=== PATIENT | male | born 1980 | race Caucasian/White ===

== ENCOUNTER 2020-07-02 10:42 | Outpatient (CLI) | payer MEDICARE, SELFPAY ==
--- NOTE | 2020-07-02 10:56 | CT_ITS ---
WS: [id number] CT of the lumbar spine, additional two-dimensional coronal and sagittal imaging was obtained. 07/02/20 Clinical Data: ACUTE LOW BACK PAIN DUE TO TRAUMA, NEUROFORAMINAL STENOSIS Comparison: CT lumbar spine, 11/22/2016. DLP: 2025.[address] scans at [facility] use at least one of these dose optimization techniques: automat ed exposure control; mA and/or kV adjustment per patient size (includes targeted exams where dose is matched to clinical indication); or iterative reconstruction. Findings: No compression fractures are seen. The disc heights are normal. The transverse processes an d spinous processes are normal. The SI joints are nonremarkable. Minimal anterior osteoarthritic spur ring of all the lumbar vertebral bodies is seen. T12-L1: No canal stenosis, disc bulge or foraminal narrowing is seen. L1-L2: No canal stenosis, disc bulge or foraminal narrowing is seen. L2-L3: No canal stenosis, disc bulge or foraminal narrowing is seen. L3-L4: No canal stenosis, disc bulge or foraminal narrowing is seen. L4-L5: There is a small broad-based central disc bulge causing mild spinal stenosis unchanged. L5-S1: There is a broad-based disc bulge causing canal stenosis with foraminal narrowing on the left unchanged. CT/CT lumbar spine wo con* [id number] Impression: 1. Broad-based disc bulging at L4-L5 and L5-S1 unchanged. 2. Minimal osteoarthritic spurring of all the lumbar vertebral bodies unchanged .
== END 2020-07-02 10:43 | disposition home or self-care (01) ==
LOC: RADWPI 10:50
PROVIDERS: PCP Family Medicine; Visit Provider Family Medicine
DX: M51.26 Other intervertebral disc displacement, lumbar region (principal)
CPT/HCPCS: 72131

== ENCOUNTER 2020-07-21 13:07 | Outpatient (CLI) | payer MEDICARE, SELFPAY ==
--- NOTE | 2020-07-21 13:00 | MR_ITS ---
WS: [id number] MRI LUMBAR SPINE NONCONTRAST HISTORY: M54.9 - Dorsalgia, unspecified COMPARISON: CT 07/02/2020 TECHNIQUE: Sagittal and axial multisequence imaging is submitted. 2 mm retrolisthesis of L2. No fractures or marrow edema. Mild disc space narrowing and desiccation at L4-5 and L5-S1. Benign hemangioma at T11. Conus terminates normally at mid L1. L1-L2: Mild annular disc bulging with a very shallow LEFT paracentral disc protrusion. No significant stenosis. L2-L3: Mild annular disc bulging with facet and ligamentum flavum arthritis. Very minimal encroachmen t upon the subarticular recesses. L3-L4: Mild annular disc bulging and osteophytic ridging with facet and ligamentum flavum hypertrophy . Mild bilateral foraminal narrowing. L4-L5: Moderate annular disc bulge with a central disc protrusion and annular fissure. Mild ligamentu m flavum hypertrophy and facet arthritis. Mild bilateral foraminal narrowing. L5-S1: Mild annular disc bulging and osteophytic ridging. Large central disc protrusion extending to the RIGHT and LEFT of midline. There is significant disc protrusion into the LEFT lateral recess and subarticular recess. Disc is abutting the LEFT L5 and S1 nerve root. Additional encroachment upon the L5 and S1 nerve roots but to a lesser extent. Severe LEFT foraminal and moderate RIGHT foraminal jay nosis. MR/MR lumbar spine wo con* [id number] IMPRESSION: 1. Large central disc protrusion at L5-S1 with extension to the RIGHT and LEFT . 2. Significant disc protrusion extending into the LEFT lateral recess and suba rticular foramen resulting in encroachment and deformity of the LEFT L5 and S1 nerve roots. 3. Severe LEFT foraminal and moderate RIGHT foraminal stenosis at L5-S1 due to combination of disc disease and osteophytes. 4. Mild bilateral foraminal narrowing at L4-5 and L5-S1.
== END 2020-07-21 13:08 | disposition home or self-care (01) ==
PROVIDERS: PCP Family Medicine; Visit Provider Orthopaedic Surgery
DX: M51.27 Other intervertebral disc displacement, lumbosacral region (principal); M48.07 Spinal stenosis, lumbosacral region
CPT/HCPCS: 72148

== ENCOUNTER → 2020-08-13 16:27 | Outpatient (BNVA) | payer MEDICARE, SELFPAY | PROVIDERS: PCP Family Medicine; Visit Provider Orthopaedic Surgery | DX: Z11.59 Encounter for screening for other viral diseases (principal) | CPT/HCPCS: 87635 ==

== ENCOUNTER 2020-08-17 11:03 | Day surgery (SDC) | payer MEDICARE, SELFPAY ==
[2020-08-14 13:19] VITALS: BMI 33.0
[2020-08-17] VITALS (13 sets, daily range): BP systolic 118–145; BP diastolic 75–90; PULSE 55–89; RESP 9–20; TEMP 36.1–36.3; O2SAT 96–100
--- NOTE | 2020-08-17 | XR_ITS ---
WS: [id number] C-ARM RADIOGRAPHS LUMBAR SPINE; 3 IMAGES HISTORY: LEFT L5/S1 herniated disc COMPARISON: None available. Intraoperative imaging during decompression at the L5-S1 level. XR/XR lumbar spine 2-3V* [id number] IMPRESSION: Intraoperative imaging during lumbar spine decompression.
--- NOTE | 2020-08-17 | SCC_ITS ---
Procedure Done: Left L5/S1 Diskectomy Partial facetectomy 12.3 seconds of fluoroscopic guidance, for a cumulative dose of 4.22 mGy, was provided to Dr. Moffett by the radiology department. C-arm images of the lumbar spine were saved for the patient's permanent record. [place]
[2020-08-17] MEDS: sodium chloride 0.9% 1,000 ML 30 ML IV (11:39)
--- NOTE | 2020-08-17 11:44 | P.ANESASSM_ITS ---
Pre-Anesthetic Assessment Pre-Anesthetic Assessment: Height/Weight: Height 1.78 m Weight 104.326 kg Temp Pulse Resp BP Pulse Ox 97.4 F L 87 18 141/85 96 08/17/20 11:21 08/17/20 11:21 08/17/20 11:21 08/17/20 11:21 08/17/20 11:21 Preop Diagnosis: Left L5/S1 disk herniation Proposed Procedure: Operation Date: 08/17/20 12:20 Proposed Procedures p L5/S1 Discectomy 00438 M51.26(Not Applicable) - Julio Moffett DO Familial anesthetic complications: None Was Beta Elle taken within 24 hours: N/A Last intake: Intake NPO > 8 hrs Last Liquid Date 08/16/20 Last Solid Date 08/16/20 Social: Social History: No alcohol and No tobacco Exam: Pre-Anes Outpt Exam: alert, oriented x 3, clear to auscultation bilaterally and regular rate & rhythm Airway: Cervical ROM: WNL Dentition: Chipped (front tooth) GI: GI: GERD Anesthetic Plan: ASA status: 1 Anesthesia: General Risk of > 500 ml bloo d loss (7ml/kg in children): No Meds/Allergies Current Medications: Current Medications Generic Name Dose Route Start Last Admin Trade Name Freq PRN Reason Stop Dose Admin Sodium Chloride 1,000 mls @ 30 ml s/hr 08/17/20 11:30 08/17/20 11:39 Sodium Chloride 0.9% IV 08/18/20 11:29 30 mls/hr .Q24H JOURDAN Administration PFSH Anesthesia PFSH: Social History Smoking and tobacco status: current some day smoker cigarettes Alcohol intake: current Alcohol intake frequency: holidays/special occasions only Data Anesthesia Cardiac Studies: No Data to Display
--- NOTE | 2020-08-17 12:01 | W.PM.OPSUD ---
Surgery/Procedure H&P Update DATE OF PROCEDURE: August 17, 2020 DATE H&P PERFORMED: 08/13/20 H&P UPDATE INFORMATION: I have reviewed H&P completed within last 30 days and I have examined patient prior to procedure PREOP DIAGNOSIS: Left L5/S1 disk herniation PLANNED PROCEDURE: Operation Date: 08/17/20 12:20 Proposed Procedures p L5/S1 Discectomy 28617 M51.26(Not Applicable) - Julio Moffett DO
[2020-08-17] MEDS: fentaNYL 50 mcg/mL INJ 2mL IVP ×3 (12:31→14:39)
--- NOTE | 2020-08-17 14:15 | PM.OP ---
Operative Report Date of procedure: August 17, 2020 Pre-op Diagnosis: Left L5/S1 disk herniation Post-op diagnosis: same Procedure Done: Left L5/S1 Diskectomy Partial facetectomy Surgeon: Julio Moffett Anesthesia: General Estimated blood loss (mL): 5 Condition: stable Disposition: PACU Procedure: 1. Left L5/S1 Diskectomy Partial facetectomy Patient was brought to the operative suite after undergoing anesthesia was placed in prone position all areas impingement well-padded. Patient was prepped and draped in normal sterile fashion. Skin was was made over the L5-S1 level. Is confirmed under C-arm guidance. Dilators passed tubular retractor was docked onto the L5 lamina. Bovie was used to clear the soft tissues off the lamina and facet joint of L5-S1. High-speed bur was used perform laminotomy as well as take down the medial aspect of facet joint. Kerrison rongeur was then used to take down the remaining lamina to the point where the ligamentum flavum inserted. Ligament flavum was taken down from L5-S1. The ligament flavum was taken out medially to the point of the facet. The medial aspect of facet joint was taken down S1 nerve root was identified and retracted medially. Disc was identified nerve hook was used to make a rent into the tissue over the herniated disc. And a pituitary was then used to remove the disc. Large amounts of disc material removed. Once all the disc tear was removed the disc base was irrigated. Wounds were irrigated. And wound was closed with Vicryl and Monocryl suture after the tube was removed. Sterile dressings were applied patient transferred to the PACU in stable condition.
--- NOTE | 2020-08-17 14:50 | SUR.PHASEI ---
1440 PT HAS SENSATION/MOVEMENT IN LOWER EXTREMITIES
[2020-08-17] MEDS: HYDROcodone-acetaminophen 5-325 mg Tablet 1 TAB PO (15:30)
--- NOTE | 2020-08-17 15:44 | ANE.PACU2 ---
Inpatient post-anesthesia follow up: Airway intact: Yes Vital signs: Temperature 97.4 F Pulse Rate 59 Respiratory Rate 18 Blood Pressure 120/84 Pulse Oximetry 98 Oxygen Delivery Me thod Room Air Oxygen Flow Rate 8 Fraction of Inspir ed Oxygen Hydration adequate: Yes Nausea and vomiting: No Pain level: 3 Mental status: Baseline
== END 2020-08-17 15:55 | disposition home or self-care (01) ==
PROVIDERS: PCP Family Medicine; Visit Provider Orthopaedic Surgery
PROC: (CPT 63030; principal; 2020-08-17 12:20)
DX: M51.26 Other intervertebral disc displacement, lumbar region (principal); F17.210 Nicotine dependence, cigarettes, uncomplicated
CPT/HCPCS: 63030; 12345; 72100; 76000; 96365; 96374; J0131; J0690; J1100; J2405; J2704; J3010; J3490; J7030

== ENCOUNTER 2020-08-19 10:51 | Inpatient (IN) | payer MEDICARE, MEDICAID, SELFPAY ==
[2020-08-19] VITALS (16 sets, daily range): BP systolic 106–169; BP diastolic 74–111; PULSE 65–103; RESP 11–30; TEMP 36.3–37.1; O2SAT 91–100
--- NOTE | 2020-08-19 | SCC_ITS ---
Procedure Done: 1. Re-explore L5/S1 diskectomy 7.7 seconds of fluoroscopic guidance, for a cumulative dose of 2.43 mGy, was provided to Dr. Moffett by the radiology department. C-arm images of the lumbar spine were saved for the patient's permanent record. [facility]
--- NOTE | 2020-08-19 | XR_ITS ---
WS: [id number] C-arm fluoroscopy of the lower lumbar spine, 08/19/2020 Clinical Data: Re-explore L5/S1 diskectomy Comparison: None. Findings: Dr. Moffett inspected the L5-S1 disc level. XR/XR lumbar spine 1V port [id number] Impression: Inspection of the L5-S1 disc level.
--- NOTE | 2020-08-19 12:01 | ED_ITS ---
HPI - Back Pain/Injury General: Chief Complaint: Back Pain/Injury Stated Complaint: BACK SURG 08/17, PAIN, LOSS CONTROL OF BOWELS Time Seen by Provider: 08/19/20 11:49 History of Present Illness: HPI Narrative: The patient is a 39-year-old male with past medical history of a herniated disc L5-S1. He had a discectomy [address] Moffett. He says it was an outpatient surgery and he went home and felt reasonably well that day. Yesterday evening he had a misstep and felt severe pain in his low back and burning pain in his left gluteal region. This morning he woke up and he is having frequent low-volume urinations and he was in bed and had an episode of bowel incontinence when he woke up this morning. MD elicited complaint: back pain Pertinent past history: back surgery Severity: severe Quality: sharp Location: lumbar spine Radiation: buttocks (left) Relieving factors: none Associated symptoms: Reports change in bowel habits, fecal incontinence and urinary frequency; Deny difficulty walking, fatigue or urinary urgency Review of Systems General: Reports: 10 or more systems reviewed and unremarkable except in HPI and below Const: Denies: fatigue Eyes: Denies: change in vision, blurry vision or eye redness ENMT: Denies: throat pain, swelling of lips/tongue, ear or mastoid pain or nasal congestion Card: Denies: chest pain, palpitations, irregular heart rhythm, edema, dyspnea on exertion or orthopnea Resp: Denies: dyspnea, productive cough or non-productive cough GI: Reports: fecal incontinence and change in bowel habits : Denies: flank pain, urinary frequency or urinary urgency Musc: Denies: neck pain, back pain, extremity pain, joint pain, joint redness, limited range of motion or muscle weakness Skin/Breast: Denies: rash, pruritus, erythema, skin pain or skin tenderness Neuro: Denies: headache(s), numbness in extremities, weakness in extremities, sensory changes, difficulty walking, dizziness, confusion or Slurred speech present Psych: Denies: anxiety or depression Endo: Denies: polyuria All/Imm: Denies: urticaria, throat swelling or tongue swelling PFSH ED PFSH: Social History Smoking and tobacco status: current some day smoker cigarettes Alcohol intake: current Alcohol intake frequency: holidays/special occasions only Physical Exam Const: COMMON NORMALS: no acute distress, average body habitus, patient oriented x3, no limitations, healthy appearing, alert and well nourished GENERAL APPEARANCE: cooperative, comfortable, well kempt and well developed ORIENTATION/CONSCIOUSNESS: Yes awake, Yes oriented to person, Yes oriented to place and Yes oriented to time HENMT: COMMON NORMALS: normocephalic, external ears normal and Normal external nose present HEAD & SCALP: normal to inspection and normocephalic NOSE: Normal external nose present EXTERNAL EAR: Yes external ears normal MOUTH: Normal oral and palatal mucosa present THROAT: posterior oropharynx normal Eye: COMMON NORMALS: Equal, round and reactive pupils present and EOMs intact bilaterally GENERAL EYE: appearance normal, both eyes and all related structures PUPIL: Yes Equal, round and reactive pupils present Neck/C-Spine: COMMON NORMALS: full ROM, no lymphadenopathy, no meningeal signs and no JVD GENERAL: Yes normal visual inspection Lymph: LYMPHATIC: no lymphadenopathy noted Chest: COMMONS NORMALS: normal inspection of the chest and normal palpation of entire chest wall Resp: COMMON NORMALS: normal respiratory effort, No retractions, No use of accessory muscles, clear to auscultation bilaterally and percussion normal EFFORT & INSPECTION: Yes able to speak in complete sentences AUSCULTATION: clear to auscultation bilaterally PERCUSSION: percussion normal Cardio: COMMON NORMALS: no JVD, regular rate, regular rhythm, S1 normal heart sound present, S2 normal heart sound present and Peripheral pulses 2+ throughout RATE: regular rate RHYTHM: regular rhythm HEART SOUNDS: S1 normal heart sound present and S2 normal heart sound present PERIPHERAL PULSES: Peripheral pulses 2+ throughout GI: COMMON NORMALS: Normal to inspection, nondistended, normoactive bowel sounds present, Soft to palpation, non-tender and no masses INSPECTION: Yes normal to inspection PALPATION: Yes Soft to palpation : COMMON NORMALS: Yes no CVA tenderness BLADDER/KIDNEY EXAM: Yes no CVA tenderness Back/Pelvis: COMMON NORMALS: no CVA tenderness OTHER: The patient has a surgical scar to the lower lumbar spine. Tenderness surrounding appropriate for postoperative day 2. He has paresthesias to his left gluteal region. Sensation intact bilaterally. He has severe pain with movement of legs and back. Extremity: COMMON NORMALS: normal to inspection, full ROM, capillary refill normal, no joint enlargement and no pedal edema GENERAL: Yes normal exam except as noted Neuro: COMMON NORMALS: patient oriented x3, CN's II-XII intact bilaterally, mo ves all extremities, no focal motor deficits, no sensory deficits noted and gait normal SENSORIUM/ORIENTATION: Yes alert, Yes oriented to person, Yes oriented to place and Yes oriented to time MENINGEAL SIGNS: Yes no meningeal signs Psych: COMMON NORMALS: mental status grossly normal, Normal thought process present, cooperative, normal affect and speech normal APPEARANCE: Yes well kempt ATTITUDE: Yes calm SPEECH: Yes normal speech THOUGHT PROCESS: Normal thought process present Skin: COMMON NORMALS: no rashes or lesions noted GENERAL SKIN EXAM: no rashes or lesions noted MDM - Back Pain/Injury MDM Narrative: Medical decision making narrative: Bear came in with severe left gluteal pain radiating from his low back. He had surgery 2 days ago and after a misstep yesterday he is having bowel and bladder incontinence this morning. Initial discussion with Dr. Moffett he recommended an MRI of the lumbar spine. He visited him in the ER approximately at 1:15 PM and recommended taking him straight to surgery. Dr. Moffett accepts for admission. Lab Data: Labs: Lab Results 08/19/20 08/19/20 08/19/20 Range/Units 12:15 12:15 12:15 WBC 13.4 H (4.0-10.0) 10^3/ uL RBC 4.83 (4.1-5.3) 10^6/u L Hgb 14.3 (11.7-16.6) g/dL Hct 44.1 (42.0-52.0) % MCV 91.3 (80-94) fL MCH 29.6 (28.0-34.0) pg MCHC 32.4 (30.0-36.0) g/dL RDW 13.2 (12.1-15.1) % Plt Count 283 (130-400) 10^3/c mm MPV 9.3 (7.4-10.4) fL Neut % (Auto) 69.1 % Lymph % (Auto) 16.7 % [place] % (Auto) 12.5 % Eos % (Auto) 0.5 % Baso % (Auto) 0.6 % Neut # (Auto) 9.25 H (1.8-7.7) 10^3/u L Lymph # (Auto) 2.2 (0.8-4.8) 10^3/u L [place] # (Auto) 1.7 H (0.2-0.9) 10^3/u L Eos # (Auto) 0.1 (0.0-0.8) 10^3/u L Baso # (Auto) 0.1 (0.0-0.1) 10^3/u L Nucleated RBC % (a uto) 0 % Nucleated RBCs # 0.0 /100WBC Sodium 136 (136-145) mmol/L Potassium 4.0 (3.5-5.1) mmol/L Chloride 100 (98-107) mmol/L Carbon Dioxide 25 (22-29) mmol/L Anion Gap 15.0 (5-19) BUN 14 (6-20) mg/dL Creatinine 0.8 (0.7-1.2) mg/dL GFR Calculation 106.5 (90-130) mL/min Glucose 99 (65-115) mg/dL Calculated Osmolal ity 283 L (285-295) mOsm/k g Calcium 9.6 (8.5-10.5) mg/dL Total Bilirubin 0.5 (0.15-1.2) mg/dL AST 42 H (0-40) U/L ALT 66 H (0-41) U/L Alkaline Phosphata se 86 (40-130) IU/L Total Protein 7.3 (6.6-8.7) g/dL Albumin 4.3 (3.5-5.2) g/dL Globulin 3.0 (1.3-4.6) g/dL Urine Color Yellow (Yellow) Urine Appearance Clear (CLEAR) Urine pH 5.0 (5-7) Ur Specific Gravit y 1.010 (1.005-1.030) Urine Protein Neg (Negative) Urine Glucose (UA) Norm (Normal) Urine Ketones Negative (Negative) Urine Blood Neg (Negative) Urine Nitrate Negative (Negative) Urine Bilirubin Neg (Negative) Urine Urobilinogen Norm (Negative) mg/dL Ur Leukocyte [place] ase Negative (Negative) Discharge Plan Discharge Patient Disposition: Admitted As Inpatient Clinical Impression: Compression of spinal cord Condition: Stable Coding Level of Care Code ED Md Urologist for Chg Fwd Exam Comprehensive
[2020-08-19] MEDS: HYDROmorphone 1 mg/mL INJ 1 mL 0.5 MG IVP (12:19)
[2020-08-19] MEDS: sodium chloride 0.9% 1,000 ML 999 ML IV (12:22)
[2020-08-19 12:30] LABS: Basophils # 0.1 10^3/uL (0.0-0.1); Basophils % 0.6 %; Eosinophils # 0.1 10^3/uL (0.0-0.8); Eosinophils % 0.5 %; Hematocrit 44.1 % (42.0-52.0); Hemoglobin 14.3 g/dL (11.7-16.6); Lymphocytes # 2.2 10^3/uL (0.8-4.8); Lymphocytes % 16.7 %; Mean Corpuscular HGB Conc 32.4 g/dL (30.0-36.0); Mean Corpuscular Hemoglobin 29.6 pg (28.0-34.0); Mean Corpuscular Volume 91.3 fL (80-94); Mean Platelet Volume 9.3 fL (7.4-10.4); Monocytes # 1.7 10^3/uL (0.2-0.9); Monocytes % 12.5 %; Neutrophils # 9.25 10^3/uL (1.8-7.7); Neutrophils % 69.1 %; Nucleated Red Blood Cells % 0 %; Platelet Count 283 10^3/cmm (130-400); Red Blood Count 4.83 10^6/uL (4.1-5.3); Red Cell Distribution Width 13.2 % (12.1-15.1); White Blood Count 13.4 10^3/uL (4.0-10.0)
[2020-08-19 12:37] LABS: Add Urine Microscopic? NO
[2020-08-19 12:43] LABS: Bilirubin Urine Neg (Negative); Blood Urine Neg (Negative); Glucose Urine UA Norm (Normal); Ketones Urine Negative (Negative); Leukocyte Esterase Urine Negative (Negative); Nitrate Urine Negative (Negative); Protein Urine Neg (Negative); Urine Appearance Clear (CLEAR); Urine Color Yellow (Yellow); Urobilinogen Urine Norm (Negative)
[2020-08-19 12:49] LABS: Alanine Aminotransferase 66 U/L (0-41); Albumin Level 4.3 g/dL (3.5-5.2); Alkaline Phosphatase 86 IU/L (40-130); Aspartate Amino Transferase 42 U/L (0-40); Blood Urea Nitrogen 14 mg/dL (6-20); Calcium 9.6 mg/dL (8.5-10.5); Carbon Dioxide 25 mmol/L (22-29); Chloride 100 mmol/L (98-107); Glomerular Filtration Rate 106.5 mL/min (90-130); Glucose 99 mg/dL (65-115); Osmolality Calculated 283 mOsm/kg (285-295); Sodium 136 mmol/L (136-145); Total Bilirubin 0.5 mg/dL (0.15-1.2); Total Protein 7.3 g/dL (6.6-8.7)
[2020-08-19] MEDS: HYDROmorphone 1 mg/mL INJ 1 mL IVP (13:28)
--- NOTE | 2020-08-19 13:54 | ED_ITS ---
HPI - Back Pain/Injury General: Chief Complaint: Back Pain/Injury Stated Complaint: BACK SURG 08/17, PAIN, LOSS CONTROL OF BOWELS Time Seen by Provider: 08/19/20 11:49 History of Present Illness: HPI Narrative: Patient had surgery on 08/17/2020 was doing great yesterday had no pain leg pain was completely gone patient comes in today with history of loss of bowel and severe leg pain burning is glued. Severity: severe Quality: sharp Relieving factors: none Associated symptoms: Reports change in bowel habits and fecal incontinence; Deny difficulty walking, fatigue or urinary urgency Review of Systems General: Reports: 10 or more systems reviewed and unremarkable except in HPI and below Const: Denies: fatigue Eyes: Denies: change in vision, blurry vision or eye redness ENMT: Denies: throat pain, swelling of lips/tongue, ear or mastoid pain or nasal congestion Card: Denies: chest pain, palpitations, irregular heart rhythm, edema, dyspnea on exertion or orthopnea Resp: Denies: dyspnea, productive cough or non-productive cough GI: Reports: fecal incontinence and change in bowel habits : Denies: flank pain, urinary frequency or urinary urgency Musc: Denies: neck pain, back pain, extremity pain, joint pain, joint redness, limited range of motion or muscle weakness Skin/Breast: Denies: rash, pruritus, erythema, skin pain or skin tenderness Neuro: Denies: headache(s), numbness in extremities, weakness in extremities, sensory changes, difficulty walking, dizziness, confusion or Slurred speech present Psych: Denies: anxiety or depression Endo: Denies: polyuria All/Imm: Denies: urticaria, throat swelling or tongue swelling PFSH ED PFSH: Social History Smoking and tobacco status: current some day smoker cigarettes Alcohol intake: current Alcohol intake frequency: holidays/special occasions only Physical Exam Narrative: EXAM NARRATIVE: For sharp pain radiating to his left leg. Unable to get a good exam due to pain. Course Vital Signs: Vital signs: Vital Signs Pulse Rate 82 08/19/20 13:35 Respiratory Rate 30 H 08/19/20 13:35 Blood Pressure 106/74 08/19/20 13:35 Pulse Oximetry 98 08/19/20 13:35 MDM - Back Pain/Injury Lab Data: Labs: Lab Results 08/19/20 08/19/20 08/19/20 Range/Units 12:15 12:15 12:15 WBC 13.4 H (4.0-10.0) 10^3/ uL RBC 4.83 (4.1-5.3) 10^6/u L Hgb 14.3 (11.7-16.6) g/dL Hct 44.1 (42.0-52.0) % MCV 91.3 (80-94) fL MCH 29.6 (28.0-34.0) pg MCHC 32.4 (30.0-36.0) g/dL RDW 13.2 (12.1-15.1) % Plt Count 283 (130-400) 10^3/c mm MPV 9.3 (7.4-10.4) fL Neut % (Auto) 69.1 % Lymph % (Auto) 16.7 % [place] % (Auto) 12.5 % Eos % (Auto) 0.5 % Baso % (Auto) 0.6 % Neut # (Auto) 9.25 H (1.8-7.7) 10^3/u L Lymph # (Auto) 2.2 (0.8-4.8) 10^3/u L [place] # (Auto) 1.7 H (0.2-0.9) 10^3/u L Eos # (Auto) 0.1 (0.0-0.8) 10^3/u L Baso # (Auto) 0.1 (0.0-0.1) 10^3/u L Nucleated RBC % (a uto) 0 % Nucleated RBCs # 0.0 /100WBC Sodium 136 (136-145) mmol/L Potassium 4.0 (3.5-5.1) mmol/L Chloride 100 (98-107) mmol/L Carbon Dioxide 25 (22-29) mmol/L Anion Gap 15.0 (5-19) BUN 14 (6-20) mg/dL Creatinine 0.8 (0.7-1.2) mg/dL GFR Calculation 106.5 (90-130) mL/min Glucose 99 (65-115) mg/dL Calculated Osmolal ity 283 L (285-295) mOsm/k g Calcium 9.6 (8.5-10.5) mg/dL Total Bilirubin 0.5 (0.15-1.2) mg/dL AST 42 H (0-40) U/L ALT 66 H (0-41) U/L Alkaline Phosphata se 86 (40-130) IU/L Total Protein 7.3 (6.6-8.7) g/dL Albumin 4.3 (3.5-5.2) g/dL Globulin 3.0 (1.3-4.6) g/dL Urine Color Yellow (Yellow) Urine Appearance Clear (CLEAR) Urine pH 5.0 (5-7) Ur Specific Gravit y 1.010 (1.005-1.030) Urine Protein Neg (Negative) Urine Glucose (UA) Norm (Normal) Urine Ketones Negative (Negative) Urine Blood Neg (Negative) Urine Nitrate Negative (Negative) Urine Bilirubin Neg (Negative) Urine Urobilinogen Norm (Negative) mg/dL Ur Leukocyte [place] ase Negative (Negative) Discharge Plan Discharge Patient Disposition: Admitted As Inpatient Clinical Impression: Compression of spinal cord Condition: Stable Coding Level of Care Code ED Global Implementation Manager for Job Mcallister
--- NOTE | 2020-08-19 13:55 | P.ANESASSM_ITS ---
Pre-Anesthetic Assessment Pre-Anesthetic Assessment: Height/Weight: Height 1.78 m Pulse Resp BP Pulse Ox 82 30 H 106/74 98 08/19/20 13:35 08/19/20 13:35 08/19/20 13:35 08/19/20 13:35 Preop Diagnosis: Left L5/S1 disk herniation Proposed Procedure: Re- exploration Familial anesthetic complications: none Last intake: 729 (toast with strawberry mustapha and butter) Social: Social History: Tobacco and No alcohol Exam: Pre-Anes Outpt Exam: alert, oriented x 3, clear to auscultation bilaterally and regular rate & rhythm Airway: Cervical ROM: WNL MP: 4 Dentition: Chipped GI: GI: GERD Musc/skel: Musc/skel: Lower Back Pain Neuropsych: Comments: Bowel and bladder incontinence s/p discectomy w/ acute onset back pain Anesthetic Plan: ASA status: 1E Anesthesia: General Risk of > 500 ml blood loss (7ml/kg in children): No PFSH Anesthesia PFSH: Social History Smoking and tobacco status: current some day smoker cigarettes Alcohol intake: current Alcohol intake frequency: holidays/special occasions only Data Anesthesia CBC & Chem 7: 08/19/20 12:15 08/19/20 12:15 Other Labs: Laboratory Results - last 48 hr 08/19/20 08/19/20 08/19/20 12:15 12:15 12:15 WBC 13.4 H RBC 4.83 Hgb 14.3 Hct 44.1 MCV 91.3 MCH 29.6 MCHC 32.4 RDW 13.2 Plt Count 283 MPV 9.3 Neut % (Auto) 69.1 Lymph % (Auto) 16.7 [place] % (Auto) 12.5 Eos % (Auto) 0.5 Baso % (Auto) 0.6 Neut # (Auto) 9.25 H Lymph # (Auto) 2.2 [place] # (Auto) 1.7 H Eos # (Auto) 0.1 Baso # (Auto) 0.1 Nucleated RBC % (auto) 0 Nucleated RBCs # 0.0 Sodium 136 Potassium 4.0 Chloride 100 Carbon Dioxide 25 Anion Gap 15.0 BUN 14 Creatinine 0.8 GFR Calculation 106.5 Glucose 99 Calculated Osmolality 283 L Calcium 9.6 Total Bilirubin 0.5 AST 42 H ALT 66 H Alkaline Phosphatase 86 Total Protein 7.3 Albumin 4.3 Globulin 3.0 Urine Color Yellow Urine Appearance Clear Urine pH 5.0 Ur Specific [place] 1.010 Urine Protein Neg Urine Glucose (UA) Norm Urine Ketones Negative Urine Blood Neg Urine Nitrate Negative Urine Bilirubin Neg Urine Urobilinogen Norm Ur Leukocyte Esterase Negative Cardiac Studies: No Data to Display
--- NOTE | 2020-08-19 13:55 | PM.HP ---
Providers/Chief Complaint Primary Care Provider: Eulogio Zamora Chief Complaint: BACK SURG 08/17, PAIN, LOSS CONTROL OF BOWELS History of Present Illness Bear Hemphill is a 39 year old male history of surgery on 08/17/2020. Comes in today with history of loss of bowel and bladder and pain rating down his leg. Patient stated he took a step. L son felt sharp burning pain in his back and his leg. Review of Systems General: Reports: 10 or more systems reviewed and unremarkable except in HPI and below Const: Denies: fatigue Eyes: Denies: change in vision, blurry vision or eye redness ENMT: Denies: throat pain, swelling of lips/tongue, ear or mastoid pain or nasal congestion Card: Denies: chest pain, palpitations, irregular heart rhythm, edema, dyspnea on exertion or orthopnea Resp: Denies: dyspnea, productive cough or non-productive cough GI: Reports: fecal incontinence and change in bowel habits : Denies: flank pain, urinary frequency or urinary urgency Musc: Denies: neck pain, back pain, extremity pain, joint pain, joint redness, limited range of motion or muscle weakness Skin/Breast: Denies: rash, pruritus, erythema, skin pain or skin tenderness Neuro: Denies: headache(s), numbness in extremities, weakness in extremities, sensory changes, difficulty walking, dizziness, confusion or Slurred speech present Psych: Denies: anxiety or depression Endo: Denies: polyuria All/Imm: Denies: urticaria, throat swelling or tongue swelling Medications/Allergies Home Medications Medication Instructions Recorded Confirmed Last Taken Type bupropion HCl 75 mg PO DAILY@0700 08/14/20 08/19/20 08/17/20 History cyclobenzaprine 10 mg PO TID PRN 08/14/20 08/19/20 08/16/20 History omeprazole magnesium [Prilosec OTC] 20 mg PO DAILY@0700 08/14/20 08/19/20 08/18/20 History oxycodone-acetaminophen [Percocet] 1 tab PO Q4H PRN 08/14/20 08/19/20 08/16/20 History acetaminophen [Tylenol] 650 mg PO QID PRN 08/17/20 08/19/20 08/17/20 History hydrocodone-acetaminophen 1 - 2 tab PO .Q4-6H #40 tab 08/17/20 08/19/20 08/19/20 Rx levothyroxine [Euthyrox] 88 mcg PO DAILY@0700 08/19/20 08/19/20 08/17/20 History sennosides-docusate sodium [Senna 1 - 2 tab PO DAILY PRN 08/19/20 08/19/20 Unknown History Plus] Allergies Allergy/AdvReac Type Severity Reaction Status Date / Time adhesive tape AdvReac rash Verified 08/17/20 11:16 PFSH Acute PFSH: Social History Smoking and tobacco status: current some day smoker cigarettes Alcohol intake: current Alcohol intake frequency: holidays/special occasions only Vitals/I&O/Wt Last Vital Signs Pulse 82 08/19/20 13:35 Resp 30 H 08/19/20 13:35 BP 106/74 08/19/20 13:35 Pulse Ox 98 08/19/20 13:35 Physical Exam Narrative: EXAM NARRATIVE: For sharp pain radiating to his left leg. Unable to get a good exam due to pain. Data : 08/19/20 12:15 08/19/20 12:15 A&P Assessment and plan (1) Cauda equina syndrome: Status: Acute Additional A&P Information Plan is to go to the OR for re-exploration. 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
--- NOTE | 2020-08-19 14:03 | PC.NURSE ---
wedding band was given to spouse.
--- NOTE | 2020-08-19 16:08 | PM.OP ---
Operative Report Date of procedure: August 19, 2020 Pre-op Diagnosis: Left L5/S1 disk herniation Post-op diagnosis: same Procedure Done: 1. Re-explore L5/S1 diskectomy Surgeon: Julio Moffett Anesthesia: General Estimated blood loss (mL): 5 Condition: stable Disposition: PACU Procedure: 1. Re-explore L5/S1 diskectomy Patient was brought back to the operative suite. Placed in the prone position after undergoing anesthesia. All areas of impingement were well-padded. Patient was prepped and draped normal sterile fashion. Skin is made using previous skin incision. Dilators were passed to the retractor was inserted and docked on the previous L5 laminotomy site. The lamina was taken down further superiorly and the medial facet was taken down further laterally. The S1 nerve root was directly visualized did have some inflammation. It was irritated. The nerve was retracted and disc was reexplored did not see any more free fragments. Did coagulate all the bleeding. Curette was then used to make sure that the L5 nerve root was free and the L5-S1 foramen and the S1 nerve was traced and completely opened up. Once this was completed then wounds were irrigated and closed with Vicryl and Monocryl suture. Sterile dressings were applied and patient was transferred to the PACU in stable condition.
[2020-08-19] MEDS: meperidine 50 mg/mL INJ 12.5 MG IVP (16:34)
[2020-08-19] MEDS: HYDROcodone-acetaminophen 5-325 mg Tablet PO ×2 (17:11→21:57)
[2020-08-19] MEDS: dexamethasone 4 mg/mL INJ 10 MG IVP ×2 (17:11→21:56)
--- NOTE | 2020-08-19 18:37 | ANE.PACU2 ---
Inpatient post-anesthesia follow up: Airway intact: Yes Vital signs: Temperature 98.0 F Pulse Rate 81 Respiratory Rate 18 Blood Pressure 120/80 Pulse Oximetry 91 Oxygen Delivery Me thod Room Air Oxygen Flow Rate 6 Fraction of Inspir ed Oxygen Hydration adequate: Yes Nausea and vomiting: No Pain level: 3 Mental status: Baseline
[2020-08-20] VITALS: BP 124/80; PULSE 95; RESP 18; TEMP 36.7; O2SAT 94
[2020-08-20] MEDS: acetaminophen 325 mg Tablet 650 MG PO (00:49)
--- NOTE | 2020-08-20 02:21 | PC.NURSE ---
Patient Concerns Patient c/o pain in the center of left buttocks, later stating it radiated down his leg like sciatica pain. Hydrocodone given per orders. Shortly after, c/o headache, requesting tylenol. Explained to him that the hydrocodone he was given had tylenol in it. Later, c/o difficulty urinating. Stated that he felt urgency to go, but then didn't. Patient had had good output, already had over 2000ml output thus far into shift. Patient eventually given tylenol for c/o persistent headache. Patient ambulated with walker 325 feet, tolerated well at the beginning of shift.
[2020-08-20 03:21] VITALS: BP 128/82; PULSE 99; RESP 18; TEMP 36.7; O2SAT 93
[2020-08-20] MEDS: dexamethasone 4 mg/mL INJ 10 MG IVP (04:11)
[2020-08-20] MEDS: pantoprazole DR 40 mg Tablet PO (06:29)
[2020-08-20] MEDS: levothyroxine 88 mcg Tablet PO (06:29)
[2020-08-20] MEDS: HYDROcodone-acetaminophen 5-325 mg Tablet PO (06:29)
[2020-08-20 08:12] VITALS: BP 125/74; PULSE 90; RESP 17; TEMP 37; O2SAT 93
--- NOTE | 2020-08-20 08:16 | P.DS_ITS ---
Discharge Providers Date of Admission: 08/19/20 16:54 Date of Discharge: August 20, 2020 Attending Provider at Admission: Julio Moffett DO Attending Provider at Discharge: Julio Moffett DO Primary Care Provider: Eulogio Zamora Diagnoses at Discharge Discharge Diagnosis (1) Cauda equina syndrome: Status: Acute Reason for Visit Reason for Visit: BACK SURG 08/17, PAIN, LOSS CONTROL OF BOWELS Hospital Course Hospital Course Patient was admitted to the hospital because he had uncontrollable pain going down his left leg and loss of bowel movement on postop day #1. Patient stated that he took a wrong step and had severe pain. Patient was taken to the OR on 08/19/2020 nothing obvious was present in surgery did take some more bone laterally to free up the nerve more the disc space was explored and no evidence of any reherniation. On 08/20/2020 patient had minimal pain and was doing well. And will be discharged. Physical Exam Narrative: EXAM NARRATIVE: No radiating pain strength is 5 out of 5. Sensations intact. Discharge Data Data Completed and Pending: Pending at discharge Category Date Time Status C-arm Fluoroscopy 11698 Routine Exams 08/19/20 14:05 Taken Labs from last 24 hours 08/19/20 08/19/20 08/19/20 12:15 12:15 12:15 WBC 13.4 H RBC 4.83 Hgb 14.3 Hct 44.1 MCV 91.3 MCH 29.6 MCHC 32.4 RDW 13.2 Plt Count 283 MPV 9.3 Neut % (Auto) 69.1 Lymph % (Auto) 16.7 Donley % (Auto) 12.5 Eos % (Auto) 0.5 Baso % (Auto) 0.6 Neut # (Auto) 9.25 H Lymph # (Auto) 2.2 Donley # (Auto) 1.7 H Eos # (Auto) 0.1 Baso # (Auto) 0.1 Nucleated RBC % (a uto) 0 Nucleated RBCs # 0.0 Sodium 136 Potassium 4.0 Chloride 100 Carbon Dioxide 25 Anion Gap 15.0 BUN 14 Creatinine 0.8 GFR Calculation 106.5 Glucose 99 Calculated Osmolal ity 283 L Calcium 9.6 Total Bilirubin 0.5 AST 42 H ALT 66 H Alkaline Phosphata se 86 Total Protein 7.3 Albumin 4.3 Globulin 3.0 Urine Color Yellow Urine Appearance Clear Urine pH 5.0 Ur Specific Gravit y 1.010 Urine Protein Neg Urine Glucose (UA) Norm Urine Ketones Negative Urine Blood Neg Urine Nitrate Negative Urine Bilirubin Neg Urine Urobilinogen Norm Ur Leukocyte Tiara ase Negative Vitals: Last Vital Signs Temp 98.6 F 08/20/20 08:12 Pulse 90 08/20/20 08:12 Resp 17 08/20/20 08:12 BP 125/74 08/20/20 08:12 Pulse Ox 93 08/20/20 08:12 Discharge Plan Discharge Patient Disposition: Home Condition: Stable Prescriptions: New hydrocodone-acetaminophen 5-325 mg tablet 1 - 2 tab PO .Q4-6H Qty: 40 RF: 0 Continued cyclobenzaprine 10 mg Tablet 10 mg PO TID PRN (Reason: Pain) RF: 0 oxycodone-acetaminophen [Percocet] 10-325 mg Tablet 1 tab PO Q4H PRN (Reason: Pain) RF: 0 bupropion HCl 75 mg Tablet 75 mg PO DAILY@0700 RF: 0 omeprazole magnesium [Prilosec OTC] 20 mg Tablet,Delayed Release (Dr/Ec) 20 mg PO DAILY@0700 RF: 0 hydrocodone-acetaminophen 5-325 mg tablet 1 - 2 tab PO .Q4-6H Qty: 40 RF: 0 Senna Plus 8.6-50 mg tablet 1 - 2 tab PO DAILY PRN (Reason: Constipation) RF: 0 Euthyrox 88 mcg tablet 88 mcg PO DAILY@0700 RF: 0 Discontinued acetaminophen [Tylenol] 325 mg Tablet 650 mg PO QID PRN (Reason: Pain) RF: 0 Discharge Orders: Discharge Order (Routine); Ordered 08/20/20 Ordered By: Julio Moffett Discharge Diet: Advance as tolerated Discharge Activity: Limit activity as instructed Activity Restrictions/Additional Instructions: same as before Discharge Attestations Time Spent in Discharge Care*: less than 30 min Quality Metrics Clinical Quality Measures During this hospital stay, did patient experience: None Coding Level of Care Code 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
[2020-08-20] MEDS: docusate sodium 100 mg Capsule PO (08:33)
--- NOTE | 2020-08-20 10:13 | PC.CHAP ---
Pastoral Care Encounter/Spiritual Assessment Type of Contact [] Declined machine cleaner visit [] Patient/Family/Request visit [] Outpatient visit [] Follow-up visit [] Physician referral [] Code/Alert [x] Routine visit [] Staff referral [] Actively dying [] Patient sleeping [] Family support [] [] Out of room [] Palliative care [] [x] Receiving care in room [] Pre-surgical visit [] Trauma [] Long length of stay [] ICU visit [] Other: Relational/Emotional Strength [x] Patient feels connected with others/family/visitors/staff [] Distress [] Loneliness/isolation [] Abandonment Spirituality of Patient [x] Person of Yue [] Attends Zoroastrianism of their Yue [x] Believes in Prayer [] Reads Bible or Jainism materials [] There are Spiritual issues to be addressed 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 Capture Clerk Interventions [x] Prayer [x] Active listening [x] Non-anxious presence [x] Spiritual/emotional support [] Crisis/trauma care [x] Spiritual counseling [] Bereavement support [] Provided bereavement packet [] Provided Bible/devotional materials [] Provided toy/stuffed animal, coloring book to patient or family member [] Provided Communion [] Anointing/Saxon [] Salvation [x] Completed spiritual assessment [] Other: Impact on Illness or Injury [] Angry [] Fearful [] Anxious [] Often cries [] Exhaustion [] Unable to work [] Unable to attend judaism [] Unable to walk/stand [] Unable to read [] Unable to drive [] Unable to eat/drink [] Unable to sleep [] Unable to be with family [] Patient intubated [] Other: Summary Has had caner recovery, had back operation, had set back injery, draned foulds felling better getting rady to home to family Time spent with patient 10 mins
--- NOTE | 2020-08-20 10:54 | PC.NURSE ---
pt iv removed and intact. discharge instruction explained and questions answered.
[2020-08-20 10:57] VITALS: BP 125/74; PULSE 90; RESP 17; TEMP 37; O2SAT 93
--- NOTE | 2020-08-21 12:54 | PC.RESP ---
Smoking Cessation information sent to patient.
== END 2020-08-20 10:58 | disposition home or self-care (01) | DRG 983 ==
LOC: ER 11:49 → OPS 13:28 → MEDSURG 16:54
PROVIDERS: Admitting Provider Orthopaedic Surgery; Emergency Provider Family Medicine; PCP Family Medicine; Visit Provider Orthopaedic Surgery
PROC: 0QB00ZZ Excision of Lumbar Vertebra, Open Approach (ICD-10-PCS; CPT 63005; principal; 2020-08-19 14:05)
DX: G83.4 Cauda equina syndrome (principal); F17.210 Nicotine dependence, cigarettes, uncomplicated
CPT/HCPCS: 12345; 72020; 72100; 76000; 80053; 81003; 85025; 96365; 96374; 97116; 97161; 97530; 99282; 99291; J0131; J0690; J1100; J1170; J2175; J2405; J2704; J2710; J3010; J3490; J7030

== ENCOUNTER → 2021-04-09 16:23 | Outpatient (BNVA) | payer MEDICARE, SELFPAY | PROVIDERS: PCP Family Medicine; Visit Provider Nurse Practitioner | DX: S69.91XA Unspecified injury of right wrist, hand and finger(s), initial encounter (principal); W55.29XA Other contact with cow, initial encounter | CPT/HCPCS: 73130 ==

== ENCOUNTER → 2022-02-27 13:04 | Outpatient (BNVA) | payer MEDICARE, SELFPAY | PROVIDERS: PCP Family Medicine; Visit Provider Family Medicine | DX: M79.605 Pain in left leg (principal); S89.92XA Unspecified injury of left lower leg, initial encounter; X58.XXXA Exposure to other specified factors, initial encounter | CPT/HCPCS: 73590 ==

== ENCOUNTER → 2023-06-29 15:20 | Outpatient (BNVA) | payer MEDICARE, SELFPAY | PROVIDERS: PCP Family Medicine; Visit Provider Nurse Practitioner Family | DX: J06.9 Acute upper respiratory infection, unspecified (principal) | CPT/HCPCS: 87426 ==

== ENCOUNTER → 2024-11-21 09:42 | Outpatient (BNVA) | payer MEDICARE, SELFPAY | PROVIDERS: PCP Family Medicine; Visit Provider Nurse Practitioner Family | DX: B35.8 Other dermatophytoses (principal); L57.8 Other skin changes due to chronic exposure to nonionizing radiation; D22.39 Melanocytic nevi of other parts of face | CPT/HCPCS: 99204 ==

== ENCOUNTER → 2025-01-07 10:43 | Outpatient (BNVA) | payer MEDICARE, SELFPAY | PROVIDERS: PCP Family Medicine; Visit Provider Nurse Practitioner Family | DX: B35.8 Other dermatophytoses (principal); L57.8 Other skin changes due to chronic exposure to nonionizing radiation; D22.39 Melanocytic nevi of other parts of face | CPT/HCPCS: 99213 ==